=== PATIENT | male | born 1950 | race Caucasian/White ===

== ENCOUNTER 2019-06-21 11:27 | Outpatient (CLI) | payer MEDICARE ==
--- NOTE | 2019-06-21 14:05 | RAD ---
RIGHT WRIST: 06/21/19 Two views. HISTORY: Wrist pain. Carpals appear normally aligned. 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 Normal narrowing at the radio carpal. No significant degenerative change in the intercarpal joints. No erosive change. IMPRESSION: Very mild degenerative change. POS: AGW
--- NOTE | 2019-06-21 14:14 | RAD ---
LEFT HAND: 06/21/19 Two views. HISTORY: Hand pain. FINDINGS: Mild narrowing of the radiocarpal joint. 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 Mild DJD at the first MCP joint with joint narrowing and mild spurring. The other MDC joints show mil d narrowing. Question subarticular erosive change involving the head of the fifth metacarpal on the P A projection. No other erosive change. No significant hypertrophic change at the MCP joints. IP joints show minimal degenerative change. No erosive change in the IP joints. IMPRESSION: Mild arthritic changes as described. POS: LASHAY
--- NOTE | 2019-06-21 14:16 | RAD ---
RIGHT HAND: Two views. HISTORY: Hand pain. Mild narrowing of the radiocarpal joint. Mild DJD at the first carpometacarpal with minimal spurring. Mild DJD at the first MCP joint with joint narrowing and minimal spurring. The other MCP joints appea r unremarkable. Minimal DJD at the IP joints. IMPRESSION: Mild degenerative changes as described. POS: AGW
--- NOTE | 2019-06-21 14:17 | RAD ---
LEFT WRIST: 06/21/19 Two views. HISTORY: Wrist pain. Mild to moderate DJD at the first carpometacarpal with joint narrowing and mild spurring. Minimal DJD at the scaphotrapezium. Carpals are normally aligned. There is a cystic change in the proximal scaph oid. Mild narrowing of the radiocarpal joint with minimal degenerative changes at this joint. IMPRESSION: Mild degenerative change as described. POS: LASHAY
== END 2019-06-21 11:28 | disposition home or self-care (01) ==
LOC: BICRAD 11:27
DX: M79.641 Pain in right hand (principal); M79.642 Pain in left hand; M79.645 Pain in left finger(s); M19.032 Primary osteoarthritis, left wrist; M19.031 Primary osteoarthritis, right wrist; M19.042 Primary osteoarthritis, left hand; M19.041 Primary osteoarthritis, right hand

== ENCOUNTER 2019-11-02 07:00 | Outpatient (CLI) | payer MEDICARE, OTHER ==
[2019-11-02 14:21] LABS: #Eosinphils 0.1 thou/uL (0.0-0.7); #Lymphocytes 1.2 thou/uL (1.20-3.40); #Monocytes 0.5 thou/uL (0.11-0.59); #Neutrophils 2.8 thou/uL (1.40-6.50); %Basophils 0.8 % (0.0-1.0); %Eosinophils 1.2 % (0.0-10.0); %Lymphocytes 26.8 % (21.0-51.0); %Monocytes 10.8 % (0.0-10.0); %Neutrophils 60.5 % (42.0-75.0); Hemoglobin 16.7 g/dL (14.0-18.0); Mean Corpuscular HGB CONC 34.7 g/dL (32.0-36.0); Mean Corpuscular Hemoglobin 33.4 pg (27.0-31.0); Mean Corpuscular Volume 96.3 fL (78.0-98.0); Mean Platelet Volume 6.7 fL (7.4-10.4); Platelet Count 220 thou/uL (130-400); RBC Distribution Width 12.6 % (11.5-14.5); White Blood Cell (WBC) Count 4.6 thou/uL (4.8-10.8)
[2019-11-02 14:55] LABS: Bilirubin Negative (Negative); Blood, Urine Negative (Negative); Clarity Turbid (Clear); Glucose, Urine (Dipstick) Normal (Negative); Ketone, Urine Negative (Negative); Leukocyte Negative Leu/uL (Negative); Nitrite Negative (Negative); Protein, Urine (Dipstick) Negative (Neg-Trace); RBC/HPF 0-3 HPF (0-3); Specific Gravity, Urine 1.016 (1.002-1.036); Squamous Epithelial None Seen HPF (0-3); Urobilinogen Normal mg/dL (Less than 2); WBC/HPF None Seen HPF (0-3)
[2019-11-02 15:00] LABS: Bacteria/HPF 1+ HPF (None Seen)
[2019-11-02 15:05] LABS: Anion Gap 15 mmol/L (10-20); BUN (Urea Nitrogen) 17 mg/dL (8.4-25.7); Calc. Creatinine Clearance 0 mL/min (70-130); Calcium 9.9 mg/dL (7.8-10.44); Carbon Dioxide 28 mmol/L (23-31); Chloride 102 mmol/L (98-107); Estimated GFR-MDRD 70; Glucose 104 mg/dL (83-110); Potassium 4.7 mmol/L (3.5-5.1); Sodium 140 mmol/L (136-145)
--- NOTE | 2019-11-04 13:09 | EKG ---
Test Reason : Blood Pressure : / mmHG Vent. Rate : 086 BPM Atrial Rate : 086 BPM P-R Int : 150 ms QRS Dur : 080 ms QT Int : 368 ms P-R-T Axes : 078 069 058 degrees QTc Int : 440 ms Sinus rhythm with Premature atrial complexes with Abberant conduction Otherwise normal ECG No previous ECGs available Confirmed by DARWIN WASHINGTON MD ([id number]) on 11/04/2019 1:08:41 PM Referred By: RAFAEL Confirmed By:DARWIN WASHINGTON MD
== END 2019-11-02 07:01 | disposition home or self-care (01) ==
LOC: LABBT 07:00
PROVIDERS: ATTEND Orthopaedic Surgery Hand Surgery
DX: Z01.818 Encounter for other preprocedural examination (principal); M72.0 Palmar fascial fibromatosis [Dupuytren]; M65.341 Trigger finger, right ring finger
CPT/HCPCS: 80048; 81001; 85025; 93005; 93010

== ENCOUNTER 2019-12-31 12:57 | Outpatient (CLI) | payer MEDICARE ==
--- NOTE | 2019-12-31 14:20 | CT ---
CT abdomen and pelvis noncontrast HISTORY: Bladder stones. FINDINGS: No comparison. Each renal collecting system and ureter are decompressed without stone evide nt. Urinary bladder is incompletely distended. At least 8 calcifications are present within the gallbladder lumen, measuring up to 0.6 cm. Prostate gland is lobular and measures up to 5.9 cm cranio caudal length, elevating the bladder base. Small amount of dystrophic calcification within the prostate gland. Scattered small dense sclerotic foci are present within the bone marrow of the vertebral bodies and p humble, measuring up to 1.0 cm greatest diameter. Most have a spiculated margin with the appearance of bone island. Lack of contrast limits evaluation of the soft tissues. No evidence of bowel obstruction or inflammat ion. Multiple rounded fluid density masses scattered throughout the liver have the appearance of cysts, measuring up to 2.7 cm within the left liver lobe. IMPRESSION : Urinary bladder calculi measuring up to 0.6 cm. No evidence of upper urinary tract obstruction or heide cification. Enlarged prostate gland with dystrophic calcification. Sclerotic lesions within the bone marrow favored to represent bone islands. If patient has a known hi story of prostate cancer, please consider radionucleotide bone scan for the possibility of metastatic foci.
--- NOTE | 2019-12-31 15:29 | MRI ---
MULTI PARAMETRIC MRI OF THE PELVIS (PROSTATE) WITH AND WITHOUT IV CONTRAST WITH REVIEW ON INDEPENDENT 3-D WORKSTATION: HISTORY: Elevated PSA of 4.24 on 11/29/2019 COMPARISON: None FINDINGS: PROSTATE: The prostate gland measures 6 x 6 x 6.3 cm with a volume of 99 cc. The PSA density measures 0.04 ng/mL/cc PERIPHERAL ZONE: No focal abnormal areas of restricted diffusion is seen to suggest malignant process . TRANSITIONAL ZONE: No lentiform area of abnormally decreased T2 signal is seen to suggest a malignant process. No focal arterial enhancing mass is seen. Prostatic capsule is intact. The seminal vesicles are intact. LYMPH NODES: No lymphadenopathy is seen. SOFT TISSUES: Pelvic sidewall is normal. No abnormality of the visualized rectum is seen. BONES: No abnormal areas of signal replacement on the T1-weighted sequences are seen to suggest osseo us metastatic disease. IMPRESSION: PI-RADS 2: Low (clinically significant prostate cancer is unlikely to be present).
== END 2019-12-31 12:58 | disposition home or self-care (01) ==
LOC: TBSIIMAG 12:57
PROVIDERS: ATTEND Urology
DX: N21.0 Calculus in bladder (principal); N40.1 Benign prostatic hyperplasia with lower urinary tract symptoms; R97.20 Elevated prostate specific antigen [PSA]; N42.89 Other specified disorders of prostate; D75.89 Other specified diseases of blood and blood-forming organs; Z85.46 Personal history of malignant neoplasm of prostate; Z98.890 Other specified postprocedural states
CPT/HCPCS: 36415; 72197; 74176; 84270; 84403

== ENCOUNTER 2021-02-10 14:36 | Outpatient (CLI) | payer MEDICARE ==
[2021-02-10 15:25] LABS: Bilirubin Neg (Negative); Blood, Urine 10 (Negative); Glucose, Urine (Dipstick) Normal (Negative); Ketone, Urine Negative (Negative); Leukocyte 25 (Negative); Nitrite Negative (Negative); Protein, Urine (Dipstick) Negative (Neg-Trace); Urobilinogen Normal mg/dL (Less than 2)
[2021-02-10 15:28] LABS: Clarity Slightly Cloudy (Clear)
[2021-02-10 15:42] LABS: #Monocytes 0.6 10x3/uL (0.0-1.1); #Neutrophils 2.7 10x3/uL (1.5-8.4); %Basophils 0.5 % (0.0-2.0); %Eosinophils 0.7 % (0.0-6.0); %Monocytes 13.2 % (0.0-10.0); %Neutrophils 61.4 % (40.0-75.0); Hemoglobin 15.9 g/dL (13.5-17.5); Mean Corpuscular HGB CONC 34.3 g/dL (32.0-36.0); Mean Corpuscular Hemoglobin 31.7 pg (27.0-33.0); Mean Corpuscular Volume 92.2 fl (81.2-95.1); Mean Platelet Volume 8.7 fl (7.4-10.4); Platelet Count 248 10x3/uL (150-450); RBC Distribution Width 13.3 % (11.5-14.5); Red Blood Cell (RBC) Count 5.02 10x6/uL (4.32-5.72); White Blood Cell (WBC) Count 4.3 10x3/uL (3.5-10.5)
[2021-02-11 12:51] LABS: SARS-CoV-2 PCR by NAA Not Detected (NotDetected)
== END 2021-02-10 14:37 | disposition home or self-care (01) ==
LOC: LABBT 14:36
PROVIDERS: ATTEND Orthopaedic Surgery Hand Surgery
DX: Z01.818 Encounter for other preprocedural examination (principal); Z20.822 Contact with and (suspected) exposure to COVID-19
CPT/HCPCS: 81003; 85025; 93005; U0003; U0005; 93010

== ENCOUNTER 2021-02-13 07:32 | Day surgery (SDC) | payer MEDICARE ==
[2021-02-05 12:59] VITALS: BMI 21.7
[2021-02-13] MEDS ORDERED: Bupivacaine PF 0.5% 30 ML VIAL ONE (07:46)
[2021-02-13] MEDS ORDERED: Bacitracin Zinc Ointment 30 gm TUBE ONE (07:46)
[2021-02-13] MEDS ORDERED: ceFAZolin 2 GM/DEX 5% 100 ML BAG ONE (07:47)
[2021-02-13] MEDS ORDERED: Fentanyl 100 MCG/2 ML VIAL ONE (08:23)
[2021-02-13] MEDS ORDERED: Midazolam HCl 2 mg/2 ml Vial ONE (08:23)
[2021-02-13] MEDS ORDERED: Glycopyrrolate 0.2 MG/ML 5 ML SYRINGE ONE (08:32)
[2021-02-13] MEDS ORDERED: Ketorolac Tromethamine 30 MG/ML VIAL ONE (08:32)
[2021-02-13] MEDS ORDERED: Lidocaine 1% PF 5 ML VIAL ONE (08:32)
[2021-02-13] MEDS ORDERED: Ondansetron PF 4 MG/2 ML Vial ONE (08:32)
[2021-02-13] MEDS ORDERED: ePHEDrine 50 MG/ML VIAL ONE (08:32)
[2021-02-13] MEDS ORDERED: PROPOFOL 200 MG/20 ML VIAL ONE (08:32)
[2021-02-13] MEDS ORDERED: Dexamethasone 20 MG/5 ML VIAL ONE (08:32)
[2021-02-13] MEDS ORDERED: Ropivacaine 0.5% HCl/PF (150 MG/30 ML VIAL) ONE (08:32)
[2021-02-13] MEDS ORDERED: Thrombin 5000 UNITS/5 ML VIAL ONE (10:59)
== END 2021-02-13 14:00 | disposition home or self-care (01) ==
LOC: SDC 07:32
PROVIDERS: ATTEND Orthopaedic Surgery Hand Surgery
PROC: 0LX60ZZ Transfer Left Lower Arm and Wrist Tendon, Open Approach (ICD-10-PCS; principal; 2021-02-13)
PROC: 0RUT07Z Supplement Left Carpometacarpal Joint with Autologous Tissue Substitute, Open Approach (ICD-10-PCS; 2021-02-13)
PROC: 3E0T3BZ Introduction of Anesthetic Agent into Peripheral Nerves and Plexi, Percutaneous Approach (ICD-10-PCS; 2021-02-13)
DX: M18.12 Unilateral primary osteoarthritis of first carpometacarpal joint, left hand (principal); Z79.899 Other long term (current) drug therapy; Z88.2 Allergy status to sulfonamides; Z88.8 Allergy status to other drugs, medicaments and biological substances
CPT/HCPCS: 25310; 25447; 64415; 73130; 76000; C1713; C1776; C1889; J1100; J1885; J2250; J2405; J2704; J2795; J3010; J3490; S0020

== ENCOUNTER 2021-08-06 13:51 | Outpatient (CLI) | payer MEDICARE | END 2021-08-06 13:52 | disposition home or self-care (01) | LOC: BICRAD 13:51 | PROVIDERS: ATTEND Nurse Practitioner Family | DX: M54.6 Pain in thoracic spine (principal); M47.816 Spondylosis without myelopathy or radiculopathy, lumbar region | CPT/HCPCS: 72072; 72100 ==

== ENCOUNTER 2021-08-27 12:44 | Outpatient (CLI) | payer MEDICARE | END 2021-08-27 12:45 | disposition home or self-care (01) | LOC: TBSIIMAG 12:44 | PROVIDERS: ATTEND Neurological Surgery | DX: S22.009A Unspecified fracture of unspecified thoracic vertebra, initial encounter for closed fracture (principal) | CPT/HCPCS: 72146 ==

== ENCOUNTER 2022-09-09 12:55 | Outpatient (CLI) | payer MEDICARE | END 2022-09-09 12:56 | disposition home or self-care (01) | LOC: RAD 12:55 | PROVIDERS: ATTEND Family Medicine | DX: I49.9 Cardiac arrhythmia, unspecified (principal) | CPT/HCPCS: 36415; 71046; 80050; 83735; 85379 ==

== ENCOUNTER 2022-09-24 16:17 | Outpatient (CLI) | payer MEDICARE | END 2022-09-24 16:18 | disposition home or self-care (01) | LOC: SCSRAD 16:17 | PROVIDERS: ATTEND Nurse Practitioner Family | DX: I48.91 Unspecified atrial fibrillation (principal) | CPT/HCPCS: 71046 ==

== ENCOUNTER 2022-11-29 06:10 | Day surgery (SDC) | payer MEDICARE ==
[2022-11-26 15:21] VITALS: BMI 21.7
[2022-11-29] MEDS ORDERED: fentaNYL 50 mcg/mL 1 mL Vial ONE (07:49)
[2022-11-29] MEDS ORDERED: PROPOFOL 200 MG/20 ML VIAL ONE (08:09)
[2022-11-29] MEDS ORDERED: Dronedarone HCl 400 MG TAB PO SCH ×2 (09:15→17:00)
== END 2022-11-29 10:23 | disposition home or self-care (01) ==
LOC: SDC 06:10
PROVIDERS: ATTEND Internal Medicine Cardiovascular Disease
PROC: 5A2204Z Restoration of Cardiac Rhythm, Single (ICD-10-PCS; principal; 2022-11-29)
DX: I48.91 Unspecified atrial fibrillation (principal); I10 Essential (primary) hypertension; I08.1 Rheumatic disorders of both mitral and tricuspid valves; F90.9 Attention-deficit hyperactivity disorder, unspecified type; Z79.01 Long term (current) use of anticoagulants; Z79.899 Other long term (current) drug therapy; Z88.1 Allergy status to other antibiotic agents; Z88.8 Allergy status to other drugs, medicaments and biological substances
CPT/HCPCS: 92960; 93005; 93312; J3010; 93010; J2704

== ENCOUNTER 2025-01-29 14:02 | Outpatient (CLI) | payer MEDICARE | END 2025-01-29 14:03 | disposition home or self-care (01) | LOC: BICRAD 14:02 | PROVIDERS: ATTEND Nurse Practitioner Family | DX: M25.432 Effusion, left wrist (principal) ==